=== PATIENT | male | born 1990 | race Caucasian/White ===

== ENCOUNTER → 2016-09-09 | Outpatient (CLI) | payer OTHER ==
--- NOTE | 2016-09-09 12:24 | REP ---
LEFT FOOT, FOUR VIEWS: HISTORY: Injury. There is no acute fracture or dislocation. The joint spaces are normal in appearance. IMPRESSION: There is no acute fracture or dislocation. Signed by Adriano Roberto MD 09/09/2016 12:28 P
== END ==
LOC: M WUC 11:21
PROVIDERS: ATTEND Physician Assistant
DX: S97.82XA Crushing injury of left foot, initial encounter (principal); W18.30XA Fall on same level, unspecified, initial encounter; Y92.009 Unspecified place in unspecified non-institutional (private) residence as the place of occurrence of the external cause